=== PATIENT | male | born 1980 | race African-American/Black ===

== ENCOUNTER 2017-02-23 07:21 | Emergency (ER) | payer BC ==
[~2017-02-23] VITALS: Ht 190.5 cm; Wt 143.9 kg
[~2017-02-23 07:21] MED LIST: ALBUTEROL SULF8.5 GM IH; BROMFED DM COU118 ML PO; MOBIC7.5 MG PO; NOHOMEMEDS; TRAMADOL HCL50 MG PO
[2017-02-23] MEDS ORDERED: AMOXICILLIN500 M1 PO (08:52)
[2017-02-23 09:12] VITALS: BP 163/96
== END 2017-02-23 09:13 | disposition home or self-care (01) ==
LOC: EME 07:21
DX: J02.9 Acute pharyngitis, unspecified (principal); Z72.0 Tobacco use
CPT/HCPCS: 87651 90; 99281; 99284

== ENCOUNTER 2017-12-30 09:36 | Emergency (ER) | payer BC ==
[~2017-12-30] VITALS: Ht 190.5 cm; Wt 142.1 kg
[~2017-12-30 09:36] MED LIST changes: +AMOXICILLIN500 M1 PO
[2017-12-30] MEDS ORDERED: NAPROSYN500 MG PO (11:48)
[2017-12-30] MEDS ORDERED: FLEXERIL10 MG PO (11:48)
[2017-12-30 11:59] VITALS: BP 124/86
== END 2017-12-30 12:00 | disposition home or self-care (01) ==
LOC: EME 09:36
DX: M54.16 Radiculopathy, lumbar region (principal); Z72.0 Tobacco use; Z86.79 Personal history of other diseases of the circulatory system
CPT/HCPCS: 99281; 99283